=== PATIENT | female | born 1960 | race Caucasian/White ===

== ENCOUNTER 2018-07-02 11:50 | Emergency (ER) | payer OTHER ==
[~2018-07-02] VITALS: Ht 157.5 cm; Wt 70.3 kg
--- OUTSIDE RECORDS SUMMARY | ~2018-07-02 | XMS | Clinical Summary ---
Demographics + + + | Address | [address] | | | [place] [address] | + + + | Home Phone | | + + + | Preferred Language | Unknown | + + + | Marital Status | | + + + | Gnosticist Affiliation | NON | + + + | Race | White | + + + | Ethnic Group | Not or | + + + Author + + + | Organization | Unknown | + + + | Address | Unknown | + + + | Phone | Unavailable | + + + Support + + + + + | Name | Relationship | Address | Phone | + + + + + | LIAN MORA | ECON | THIS | | | | | [place] | | | | | [address] | | + + + + + Care Team Providers + +------+ + | Care Automotive Specialty Technician Name | Role | Phone | + +------+ + PP | Unavailable | + +------+ + Source Comments DEMARCUS is fully live on both [facility] Ambulatory and [facility] InPatient.[facility] [place] [facility] Allergies Not on File Current Medications Not on file Active Problems Not on file Social History + +-------+ +--------+------+ | Tobacco Use | Types | Packs/Day | Years | Date | | | | | Used | | + +-------+ +--------+------+ | Never Assessed | | | | | + +-------+ +--------+------+ + + + | Sex Assigned at | Date Recorded | | | | + + + | Not on file | | + + + Plan of Treatment + + + + + | Health Maintenance | Due Date | Last Done | Comments | + + + + + | Influenza (Flu) | | | | | vaccination (#1) | 8 | | | + + + + + Results Not on filefrom Last 3 Months"
--- OUTSIDE RECORDS SUMMARY | ~2018-07-02 | XMS | Clinical Summary ---
Demographics + + + | Address | [address] | | | [place] [address] | + + + | Home Phone | | + + + | Preferred Language | Unknown | + + + | Marital Status | | + + + | Mandaen Affiliation | 1038 | + + + | Race | Unknown | + + + | Ethnic Group | Unknown | + + + Author + + + | Author | [facility] | + + + | Organization | [facility] | + + + | Address | Unknown | + + + | Phone | Unavailable | + + + Support + + + + + | Name | Relationship | Address | Phone | + + + + + | David Mora | ECON | [address] | | | | | [place] | | | | | [address] | | + + + + + Care Team Providers + +------+ + | Care Human Resources Operations Specialist Name | Role | Phone | + +------+ + | Ilan Sanderson MD | PP | | + +------+ + Allergies + + + + + + | Active Allergy | Reactions | Severity | Noted | Comments | | | | | Date | | + + + + + + | Amoxicillin | Other (See Comments) | Medium | 09/19/19 | unknown | | | | | 15 | | + + + + + + | Penicillins | Other (See Comments) | Medium | 09/19/19 | unknown | | | | | 15 | | + + + + + + | Ketorolac | Other (See Comments) | Medium | 09/19/19 | unknown | | | | | 15 | | + + + + + + Current Medications + + +---------+---------+------+------+-------+ | Prescription | Sig. | Disp. | Refills | Star | End | Statu | | | | | | t | Date | s | | | | | | Date | | | + + +---------+---------+------+------+-------+ | atorvastatin | Take 40 mg by mouth | | | | | Activ | | (LIPITOR) 40 MG | nightly. | | | | | e | | tablet | | | | | | | + + +---------+---------+------+------+-------+ | metFORMIN | Take 1,000 mg by | | | | | Activ | | (GLUCOPHAGE) 500 MG | mouth 2 (two) times | | | | | e | | tablet | daily with meals. | | | | | | + + +---------+---------+------+------+-------+ | gabapentin | Take 300 mg by mouth | | | | | Activ | | (NEURONTIN) 300 MG | 3 (three) times | | | | | e | | capsule | daily. | | | | | | + + +---------+---------+------+------+-------+ | lisinopril | Take 5 mg by mouth | | | | | Activ | | (ZESTRIL) 5 MG | daily. | | | | | e | | tablet | | | | | | | + + +---------+---------+------+------+-------+ | insulin lispro, | Inject into the | | | | | Activ | | human, (HUMALOG) 100 | skin 3 (three) times | | | | | e | | UNIT/ML injection | daily before meals. | | | | | | + + +---------+---------+------+------+-------+ | insulin glargine | Inject 10 Units into | 10 mL | 12 | 09/12 | | Activ | | (LANTUS) 100 UNIT/ML | the skin nightly. | | | 0/20 | | e | | injection | | | | 15 | | | + + +---------+---------+------+------+-------+ Active Problems + + + | Problem | Noted Date | + + + | Drug overdose, multiple drugs | 09/18/2014 | + + + | Toxic metabolic encephalopathy | 09/18/2014 | + + + | Hypotension, unspecified | 09/18/2014 | + + + | Prolonged Q-T interval on ECG | 09/18/2014 | + + + | Type 2 diabetes mellitus without complication (HCC) | 09/18/2014 | + + + | Chronic pain syndrome | 09/18/2014 | + + + | HLD (hyperlipidemia) | 09/18/2014 | + + + | Depression | 09/18/2014 | + + + | Suicidal overdose | 09/18/2014 | + + + Immunizations + + + + | Name | Dates Previously Given | Next Due | + + + + | Pneumococcal | 09/19/2014 | | | Polysaccharide | | | | 23-valent | | | + + + + Social History + +-------+ +--------+------+ | Tobacco Use | Types | Packs/Day | Years | Date | | | | | Used | | + +-------+ +--------+------+ | Current Every Day | | 0.5 | | | | Smoker | | | | | + +-------+ +--------+------+ + + | Tobacco Cessation: Ready to Quit: No; Counseling Given: Yes | + + + + + | Sex Assigned at | Date Recorded | | | | + + + | Not on file | | + + + Last Filed Vital Signs + + + + | Vital Sign | Reading | Time Taken | + + + + | Blood Pressure | 130/63 | 09/21/2014 2:00 PM PDT | + + + + | Pulse | 89 | 09/21/2014 2:00 PM PDT | + + + + | Temperature | 37.3 C (99.2 F) | 09/21/2014 1:00 PM PDT | + + + + | Respiratory Rate | 20 | 09/21/2014 12:00 PM PDT | + + + + | Oxygen Saturation | 94% | 09/21/2014 2:00 PM PDT | + + + + | Inhaled Oxygen | - | - | | Concentration | | | + + + + | Weight | 72 kg (158 lb 11.7 | 09/21/2014 4:13 AM PDT | | | oz) | | + + + + | Height | 157.5 cm (5' 2") | 09/19/2014 9:45 AM PDT | + + + + | Body Mass Index | 29.03 | 09/21/2014 4:13 AM PDT | + + + + Plan of Treatment + + + + + | Health Maintenance | Due Date | Last Done | Comments | + + + + + | Vaccine: | | | | | Dtap/Tdap/Td (1 - | 0 | | | | Tdap) | | | | + + + + + | Cervical Cancer | | 10/11/2003 | | | Screening (Pap) | 9 | | | + + + + + | Vaccine: Zoster (1 | | | | | of 2) | 1 | | | + + + + + | Vaccine: Influenza | | | | | (#1) | 8 | | | + + + + + Results Not on filefrom Last 3 Months Insurance + +--------+ +------+-------+---------+ | Payer | Benefi | Subscriber | Type | Phone | Address | | | t Plan | ID | | | | | | / | | | | | | | Group | | | | | + +--------+ +------+-------+---------+ | [employer] | FC-NET | [id number] | | | | | | WORK | | | | | + +--------+ +------+-------+---------+ + +--------+ +--------+ + + | Guarantor Name | Accoun | Relation to | Date | Phone | Billing Address | | | t Type | Patient | of | | | | | | | | | | + +--------+ +--------+ + + | NURIA MORA | Person | Self [birth year] | Home: | [address] | | | al/Fam | | 1961 | [phone] | [place] | | | [place] | | | [phone] | [phone] | + +--------+ +--------+ + +
--- OUTSIDE RECORDS SUMMARY | ~2018-07-02 | XMS | Clinical Summary ---
Demographics + + + | Address | [address] | | | [place] [address] | + + + | Home Phone | | + + + | Preferred Language | Unknown | + + + | Marital Status | | + + + | Mormonism Affiliation | NON | + + + [...] [place] | | | | | [address] | | + + + + + Care Team Providers + +------+ + | Care Mining Plant Operator Name | Role | Phone | + +------+ + PP | Unavailable | + +------+ + Source Comments DEMARCUS is fully live on both [facility] Ambulatory and [facility] InPatient.[facility] Allergies Not on File Current Medications Not [...]
--- OUTSIDE RECORDS SUMMARY | ~2018-07-02 | XMS | Clinical Summary ---
Demographics + + + | Address | [address] | | | [place] [address] | + + + | Home Phone | | + + + | Preferred Language | Unknown | + + + | Marital Status | | + + + | Quaker Affiliation | 1038 | + + + | Race | Unknown | + + + | Ethnic Group | Unknown | + + + Author + + + | Author | [facility] | | | and [place] | + + + | Organization | [facility] | | | and [place] | + + + | Address | Unknown | + + + | Phone | Unavailable | + + + Support + + +---------+ + | Name | Relationship | Address | Phone | + + +---------+ + | LIAN MORA ECON | Unknown | | + + +---------+ + Care Team Providers + +------+ + | Care Lighting Fixture Installer Name | Role | Phone | + +------+ + | Narinder Roper MD | PP | | + +------+ + Allergies + + + + + + | Active Allergy | Reactions | Severity | Noted | Comments | | | | | Date | | + + + + + + | Amitriptyline | | | 10/22/19 | HOOKER OPERATOR | | | | | 14 | | + + + + + + | Amoxicillin | | | 07/ | | | | | | 14 | | + + + + + + | Aripiprazole | | | 10/22/19 | Palpitations, | | | | | 14 | headache | + + + + + + | Gabapentin | | | 10/22/19 | | | | | | 14 | | + + + + + + | Morphine | Itching | | 10/22/19 | | | | | | 14 | | + + + + + + | Penicillins | | | 10/22/19 | Stomach upset | | | | | 14 | | + + + + + + | Quetiapine Fumerate | | | 10/22/19 | | | | | | 14 | | + + + + + + | Risperidone | | | 10/22/19 | | | | | | 14 | | + + + + + + Current Medications + + +-------+---------+------+------+-------+ | Prescription | Sig. | Disp. | Refills | Star | End | Statu | | | | | | t | Date | s | | | | | | Date | | | + + +-------+---------+------+------+-------+ | metFORMIN | Take 1,000 mg by | | | | | Activ | | (GLUCOPHAGE) 500 mg | mouth 2 times daily | | | | | e | | tablet | (with breakfast & | | | | | | | | dinner). | | | | | | + + +-------+---------+------+------+-------+ | lisinopril | Take 5 mg by mouth | | | | | Activ | | (PRINIVIL, ZESTRIL) | Daily. | | | | | e | | 5 mg tablet | | | | | | | + + +-------+---------+------+------+-------+ | PARoxetine (PAXIL) | Take 20 mg by mouth | | | | | Activ | | 20 mg tablet | every morning. | | | | | e | + + +-------+---------+------+------+-------+ | traZODone | Take 300 mg by mouth | | | | | Activ | | (DESYREL) 100 mg | nightly. | | | | | e | | tablet | | | | | | | + + +-------+---------+------+------+-------+ | cyclobenzaprine | Take 10 mg by mouth | | | | | Activ | | (FLEXERIL) 10 mg | 3 times daily as | | | | | e | | tablet | needed. | | | | | | + + +-------+---------+------+------+-------+ | insulin glargine | Inject under the | | | | | Activ | | (LANTUS) 100 | skin nightly. | | | | | e | | units/mL injection | | | | | | | | cartridge | | | | | | | + + +-------+---------+------+------+-------+ | promethazine | Take 25 mg by mouth | | | | | Activ | | (PHENERGAN) 25 mg | every 6 hours as | | | | | e | | tablet | needed. | | | | | | + + +-------+---------+------+------+-------+ | clonazepam | Take 2 mg by mouth 3 | | | | | Activ | | (KLONOPIN) 2 MG | times daily as | | | | | e | | tablet | needed. | | | | | | + + +-------+---------+------+------+-------+ | atorvaSTATin | Take 40 mg by mouth | | | | | Activ | | (LIPITOR) 40 mg | nightly. | | | | | e | | tablet | | | | | | | + + +-------+---------+------+------+-------+ | | Take 1 tablet by | | | | | Activ | | HYDROcodone-acetamin | mouth every 6 hours | | | | | e | | ophen (NORCO) 5-325 | as needed. | | | | | | | mg per tablet | | | | | | | + + +-------+---------+------+------+-------+ | ondansetron | | | | 06/2 | | Activ | | (ZOFRAN) 8 MG tablet | | | | /20 | | e | | | | | | 14 | | | + + +-------+---------+------+------+-------+ | FREESTYLE LITE | | | | 07/3 | | Activ | | strip | | | | 1/20 | | e | | | | | | 14 | | | + + +-------+---------+------+------+-------+ | Monolet Lancets | | | | 07/3 | | Activ | | MISC | | | | 1/20 | | e | | | | | | 14 | | | + + +-------+---------+------+------+-------+ | | | | | 08/1 | | Activ | | oxyCODONE-acetaminop | | | | 6/20 | | e | | hen (PERCOCET) 5-325 | | | | 14 | | | | mg per tablet | | | | | | | + + +-------+---------+------+------+-------+ | risperiDONE | | | | 07/3 | | Activ | | (RISPERDAL) 0.5 mg | | | | 1/20 | | e | | tablet | | | | 14 | | | + + +-------+---------+------+------+-------+ | | | | | 08/1 | | Activ | | sulfamethoxazole-tri | | | | 6/20 | | e | | methoprim (BACTRIM | | | | 14 | | | | DS) 800-160 mg per | | | | | | | | tablet | | | | | | | + + +-------+---------+------+------+-------+ Active Problems + + + | Problem | Noted Date | + + + | 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 | 11/28/2013 | | intermittent claudication | | + + + + + | Overview: ICD-10 Record update | + + Family History + + +------+ + | Medical History | Relation | Name | Comments | + + +------+ + | Colon cancer | Father | | | + + +------+ + | Other (see comment) | Maternal | | ASHD | | | Grandfath | | | | | er | | | + + +------+ + | Cancer | Mother | | | + + +------+ + | Diabetes | Mother | | | + + +------+ + | Diabetes | Paternal | | | | | Grandfath | | | | | er | | | + + +------+ + | Other (see comment) | Paternal | | ASHD | | | Grandmoth | | | | | er | | | + + +------+ + + +------+ + + | Relation | Name | Status | Comments | + +------+ + + | Father | | | | + +------+ + + | Maternal Grandfather | | | | + +------+ + + | Mother | | Alive | | + +------+ + + | Paternal Grandfather | | | | + +------+ + + | Paternal Grandmother | | | | + +------+ + + Social History + +-------+ +--------+------+ | Tobacco Use | Types | Packs/Day | Years | Date | | | | | Used | | + +-------+ +--------+------+ | Current Every Day | | | | | | Smoker | | | | | + +-------+ +--------+------+ + + +---------+ + | Alcohol Use | Drinks/We | oz/Week | Comments | | | ek | | | + + +---------+ + | No | | | | + + +---------+ + + + + | Sex Assigned at | Date Recorded | | | | + + + | Not on file | | + + + Last Filed Vital Signs + + + + | Vital Sign | Reading | Time Taken | + + + + | Blood Pressure | 104/80 | 10/26/20131543 PDT | + + + + | Pulse | 123 | 10/26/20131543 PDT | + + + + | Temperature | 36 C (96.8 F) | 10/26/20131543 PDT | + + + + | Respiratory Rate | 18 | 10/26/20131543 PDT | + + + + | Oxygen Saturation | 97% | 10/26/20131543 PDT | + + + + | Inhaled Oxygen | - | - | | Concentration | | | + + + + | Weight | 70.1 kg (154 lb 8 | 10/26/20131543 PDT | | | oz) | | + + + + | Height | 154.9 cm (5' 1") | 10/26/20131543 PDT | + + + + | Body Mass Index | 29.19 | 10/26/20131543 PDT | + + + + Plan of Treatment + + + + + | Health Maintenance | Due Date | Last Done | Comments | + + + + + | Vaccine: | | | | | Dtap/Tdap/Td (1 - | 0 | | | | Tdap) | | | | + + + + + | Cervical Cancer | | | | | Screening (Pap) | 1 | | | + + + + + | Vaccine: Zoster (1 | | | | | of 2) | 1 | | | + + + + + | Vaccine: Influenza | | | | | (#1) | 8 | | | + + + + + Results Not on filefrom Last 3 Months Insurance + +--------+ +------+ +---------+ | Payer | Benefi | Subscriber | Type | Phone | Address | | | t Plan | ID | | | | | | / | | | | | | | Group | | | | | + +--------+ +------+ +---------+ | [employer] | PHP | [id number] | PPO | [id number] | | PLAN | PROV | | | [phone] | | | | [employer] | | | | | | | [place] | | | | | | | [place] | | | | | + +--------+ +------+ +---------+ + +--------+ +--------+ + + | Guarantor Name | Accoun | Relation to | Date | Phone | Billing Address | | | t Type | Patient | of | | | | | | | | | | + +--------+ +--------+ + + | NURIA MORA | Person | Self [birth year] | Home: | [address] | | | al/Fam | | 1961 | [phone] | [place] [address] | | | [place] | | | [phone] | | + +--------+ +--------+ + +
--- OUTSIDE RECORDS SUMMARY | ~2018-07-02 | XMS | Clinical Summary ---
Demographics + + + | Address | [address] | | | [place] [address] | + + + | Home Phone | | + + + | Preferred Language | Unknown | + + + | Marital Status | | + + + | Quaker Affiliation | 1038 | + + + | Race | Unknown | + + + | Ethnic Group | Unknown | + + + Author + + + | Author | [facility] | + + + | Organization | [facility] | + + + | Address | Unknown | + + + | Phone | Unavailable | + + + Support + + + + + | Name | Relationship | Address | Phone | + + + + + | David Mora | ECON | [address] | | | | | [place] | | | | | [address] | | + + + + + Care Team Providers + +------+ + | Care Lens Inserter Name | Role | Phone | + [...] +------+-------+---------+ | [employer] | FC-NET | [id number] | | | | | | WORK [...] | [place] | | | [phone] | [phone] | + +--------+ +--------+ + +
--- OUTSIDE RECORDS SUMMARY | ~2018-07-02 | XMS | Clinical Summary ---
Demographics + + + | Address | [address] | | | [place] [address] | + + + | Home Phone | | + + + | Preferred Language | Unknown | + + + | Marital Status | | + + + | Cheondoism Affiliation | 1038 | + + + | Race | Unknown | + + + | Ethnic Group | Unknown | + + + Author + + + | Author | [facility] | | | and [place] | + + + | Organization | [facility] | | | and [place] [...] Team Providers + +------+ + | Care Printer Slotter Helper Name | Role | Phone | + +------+ + | Narinder Roper MD | PP | | + +------+ + Allergies + + + + + + | Active Allergy | Reactions | Severity | Noted | Comments | | | | | Date | | + + + + + + | Amitriptyline | | | 10/22/19 | VISITOR INFORMATION ASSISTANT | | | | | 14 | [...] | + + + | Atherosclerosis of [place] arteries of the extremities with | 11/28/2013 [...] +---------+ | [employer] | PHP | [id number] | PPO | [phone] | | PLAN | PROV | [...] | 1961 | [phone] | [place] [address] | | | [place] | | | [address] | | + +--------+ +--------+ + +
[~2018-07-02 11:50] MED LIST: CIPROFLOXACIN500 MG PO; CLONAZEPAM0.5 MG PO; CLONAZEPAM1 MG PO; CLONAZEPAM2 MG; CYCLOBENZAPRINE10 MG; ERYTHROMYCIN500 MG PO; GABAPENTIN300 MG; KEFLEX500 MG PO; LANTUS100 UNITS/ SUB-Q; LIPITOR40 MG PO; LISINOPRIL10 MG PO; METFORMIN HCL500 MG PO; NORCO 5-325 TA1 EACH; NORCO 5-325 TA1 EACH PO; ONDANSETRON HCL8 MG PO; OXYCODONE HCL5 MG; OXYCODONE HCL5 MG PO; PAROXETINE HCL20 MG PO; PERCOCET 5-3251 EACH PO; PROMETHAZINE HC25 M1; TIZANIDINE HCL4 M1 PO; TRAZODONE HCL100 MG PO; ZOFRAN ODT8 MG PO
[2018-07-02] MEDS ORDERED: TYLENOL WITH C1 EACH PO (15:04)
--- NOTE | 2018-07-03 18:25 | EKG ---
[facility] [address] [place] [address] Signed Normal sinus rhythm with sinus arrhythmia Normal ECG No previous ECGs available Confirmed by LORNE ZUÑIGA MD ([id number]) on 07/03/2018 6:25:05 PM Electronically Signed By: LORNE ZUÑIGA MD 07/03/18 1825 PATIENT NAME: YANY MORA Electrocardiogram DATE OF : 60 PHYSICIAN: LORNE ZUÑIGA MD REPORT #: [id number] REPORT IS CONFIDENTIAL AND NOT TO BE RELEASED WITHOUT AUTHORIZATION
== END 2018-07-02 15:17 | disposition home or self-care (01) ==
LOC: ED 11:50
DX: R42 Dizziness and giddiness (principal); N39.0 Urinary tract infection, site not specified; F41.9 Anxiety disorder, unspecified; I10 Essential (primary) hypertension; E11.9 Type 2 diabetes mellitus without complications; Z87.891 Personal history of nicotine dependence; Z90.710 Acquired absence of both cervix and uterus; Z88.1 Allergy status to other antibiotic agents; Z88.0 Allergy status to penicillin; Z88.8 Allergy status to other drugs, medicaments and biological substances; Z88.6 Allergy status to analgesic agent; Z79.84 Long term (current) use of oral hypoglycemic drugs; Z79.899 Other long term (current) drug therapy
CPT/HCPCS: 71045; 80053; 81001; 84484; 85025; 93005; 93010; 96361; 96374; 96375; 99284-25; J2270; J2405; J2550; J7030

== ENCOUNTER 2019-06-16 10:15 | Emergency (ER) | payer OTHER ==
[~2019-06-16] VITALS: Ht 157.5 cm; Wt 70.3 kg
[~2019-06-16 10:15] MED LIST changes: +TYLENOL WITH C1 EACH PO
--- OUTSIDE RECORDS SUMMARY | 2019-06-16 10:18 | XMS ---
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 EJohn VISIT COUNT (12 MO.) 2 [facility] TOTAL 2 NOTE: Visits indicate total known visits. ED/UCC VISIT TRACKING (12 MO.) 06/16/2019 10:15 [facility] [place] TYPE: Emergency COMPLAINT: - HEADACHES, COLD SYMPTOMS 07/02/2018 11:51 [facility] [place] TYPE: Emergency COMPLAINT: - DIZZINESS/VOMITING DIAGNOSES: - Essential (primary) hypertension - Allergy status to oth drug/meds/biol subst status - [facility] (current) use of oral hypoglycemic drugs - Other intermediate (current) drug therapy - Allergy status to analgesic agent status - Dizziness and giddiness - 1 Type 2 diabetes mellitus without complications - Acquired absence of both cervix and uterus - Allergy status to penicillin - Personal history of nicotine dependence - Anxiety disorder, unspecified - Urinary tract infection, site not specified - Allergy status to other antibiotic agents status INPATIENT VISIT TRACKING (12 MO.) No inpatient visits to display in this time frame [email or web address]
[2019-06-16] MEDS ORDERED: CLONAZEPAM0.5 MG PO (10:33)
[2019-06-16] MEDS ORDERED: CYMBALTA60 MG PO (10:34)
[2019-06-16] MEDS ORDERED: ABILIFY10 MG PO (10:34)
[2019-06-16] MEDS ORDERED: GLIPIZIDE ER5 MG PO (10:35)
[2019-06-16] MEDS ORDERED: CEFUROXIME500 MG PO (13:47)
== END 2019-06-16 14:17 | disposition home or self-care (01) ==
LOC: ED 10:15
DX: N39.0 Urinary tract infection, site not specified (principal); F41.9 Anxiety disorder, unspecified; I10 Essential (primary) hypertension; E11.9 Type 2 diabetes mellitus without complications; Z87.891 Personal history of nicotine dependence; Z88.1 Allergy status to other antibiotic agents; Z88.0 Allergy status to penicillin; Z88.6 Allergy status to analgesic agent; Z79.899 Other long term (current) drug therapy; Z79.84 Long term (current) use of oral hypoglycemic drugs
CPT/HCPCS: 80053; 81001; 83690; 85025; 87502; 87880; 96361; 96365; 96375; 99284-25; J0696; J1200; J2405; J2765; J7030

== ENCOUNTER 2019-10-08 07:05 | Day surgery (SDC) | payer OTHER ==
[~2019-10-08] VITALS: Ht 152.4 cm; Wt 55.8 kg
[~2019-10-08 07:05] MED LIST changes: +ABILIFY10 MG PO; +CEFUROXIME500 MG PO; +CYMBALTA60 MG PO; +GLIPIZIDE ER5 MG PO
[2019-10-08] MEDS ORDERED: CYMBALTA60 MG PO (07:26)
--- NOTE | 2019-10-08 08:36 | NUR ---
10/08/19 0836 Jakob,Kimberly 0857 PT ARRIVED TO PACU ON 6L VIA MASK, RESP EVEN AND UNLABORED. 0832 PT WAKES AND DENIES PAIN AND NAUSEA. PT REORIENTED TO PACU. VSS. O2 MASK REMOVED.
--- NOTE | 2019-10-08 08:51 | NUR ---
PATIENT HAS AUDIBLE EXPIRATORY WHEEZE, REPORTS STOPPED TAKING LASIX 2 WEEKS AGO WHEN SHE HURT HER RIGHT KNEE. REPORTED FINDINGS TO SPARKLE MAC WHO NOTIFIED DR. ROSENBERG. PATIENT OPTED TO RESCHEDULE EGD, SECONDARY TO RISKS. DR. ROSENBERG INTO ROOM TO TALK WITH PATIENT.
--- NOTE | 2019-10-08 10:53 | OR ---
[facility] [address], [place] [address] Signed DATE OF OPERATION: 10/08/2019 SURGEON: Jennifer Rosenberg MD PREOPERATIVE DIAGNOSES: 1. Father with colon cancer, age 49. 2. Personal history of hyperplastic polyps. 3. Anemia. POSTOPERATIVE DIAGNOSES: 1. A 3 mm polyp at 12 cm (rectum). 2. Minimal internal hemorrhoids. 3. Minimal left-sided diverticulosis. PROCEDURE: Colonoscopy with cold biopsy. ESTIMATED BLOOD LOSS: None. INDICATIONS: Nuria is a 59-year-old female, who comes for followup colonoscopy. She has had colonoscopies in 2001, 2005 and 2013. Her father had developed colon cancer at age 49 and a year later from his colon cancer. Nuria in the meantime has no lower GI complaints. We were unable to sedate her in the past with Versed and fentanyl. Consequently, she requires monitored anesthesia care with propofol. In addition, she takes clonazepam, Cymbalta and Abilify at her baseline. Consequently, she always asks me for Xanax, so she can take before she comes in the hospital. We have made those arrangements once again on this occasion. She understands colonoscopy quite well. She understands there is risk including, but not limited to gas bloating, crampy abdominal pain, bleeding, perforation requiring surgery, and missed diagnosis. She has expressed understanding and would like to proceed. DESCRIPTION OF PROCEDURE: Nuria was taken into our endoscopy suite and placed in the left lateral decubitus position. She was given IV sedation with propofol per our nurse set up mold technician. A digital rectal exam was performed and this was unremarkable. The adult colonoscope was introduced and advanced under direct visualization of camera. Nuria is quite thin. We needed some abdominal compression to move the bowel loops around and add counter pressure in order to advance the scope into the cecum itself. Her prep was quite good Electronically Signed By: JENNIFER ROSENBERG MD 10/08/19 1053 PATIENT NAME: NURIA MORA OPERATIVE REPORT DATE OF : 60 REPORT #: [id number] PHYSICIAN: JENNIFER ROSENBERG MD PCP: ILAN QUIROGA MD REPORT IS CONFIDENTIAL AND NOT TO BE RELEASED WITHOUT AUTHORIZATION [facility] [address], [place] [address] Signed on this occasion. We could easily see the appendiceal orifice and the ileocecal valve. The scope was slowly withdrawn. We saw just a few tiny diverticula in her left colon. She had a very tiny polyp at the top of the rectum, which we removed with a cold biopsy forceps. Upon retroflexion of scope, she also has very tiny internal hemorrhoid tissue. After this, the gas was suctioned out and the colonoscope removed. Nuria tolerated the procedure quite well. RECOMMENDATIONS: I will see Nuria back in my office in 7 to 14 days to review her results. She will stay on the 5-year plan due to her family history. MD LAUREN Kruger/ELENAL /[id number] cc: MD Ilan Joseph MD Copies: BRENDA FINNEGAN MD, MALCOLM MD ~ Electronically Signed By: JENNIFER ROSENBERG MD 10/08/19 1053 PATIENT NAME: NURIA MORA OPERATIVE REPORT DATE OF : 60 REPORT #: [id number] PHYSICIAN: JENNIFER ROSENBERG MD PCP: ILAN QUIROGA MD REPORT IS CONFIDENTIAL AND NOT TO BE RELEASED WITHOUT AUTHORIZATION
--- NOTE | 2019-10-12 10:55 | PATH ---
[facility] [address] [place], [place] [address] Signed SPECIMEN(S): A RECTAL POLYP AT 12 CM SPECIMEN SOURCE: A. RECTAL POLYP AT 12 CM CLINICAL HISTORY: History of colon polyps; family history of colon CA. Postop: Diverticulosis; rectal polyp; internal hemorrhoids. MICROSCOPIC DESCRIPTION: Histologic sections of all submitted blocks are examined by light microscopy. These findings, together with the gross examination, support the pathologic diagnosis. FINAL PATHOLOGIC DIAGNOSIS: Rectum, polyp at 12 cm, polypectomy: - Hyperplastic polyp. - Negative for dysplasia or malignancy. NAL:cml:C2NR GROSS DESCRIPTION: The specimen, labeled "Nuria Mora, #1," and designated on the requisition "rectum polyp at 12 cm," is received in formalin and consists of one ndiaye soft tissue fragment that measures 0.4 cm in greatest dimension. The specimen is entirely submitted in cassette (A1). FB (under the direct supervision of a pathologist) The Gross Description was prepared using a voice recognition system. The report was reviewed for accuracy; however, sound-alike word errors, addition and/or deletions may occur. If there is any question about this report, please contact Client Services. PERFORMING LABORATORY: The technical component was performed by [facility], [address] [place] [id number] (Office Coordinator: Yadi Schmidt MD; CLIA# [id number]). [facility] [address] [address] (CLIA# [id number]). Diagnostician: Nyasia Negrete MD Pathologist Electronically Signed 10/12/2019 PATIENT NAME: NURIA MORA PATHOLOGY DATE OF : 60 REPORT #: [id number] PHYSICIAN: [facility] PCP: JACK QUIROGA MD REPORT IS CONFIDENTIAL AND NOT TO BE RELEASED WITHOUT AUTHORIZATION [address] [address] Signed Copies: ~ PATIENT NAME: NURIA MORA PATHOLOGY DATE OF : 60 REPORT #: [id number] PHYSICIAN: [facility] PCP: JACK QUIROGA MD REPORT IS CONFIDENTIAL AND NOT TO BE RELEASED WITHOUT AUTHORIZATION
== END 2019-10-08 09:10 | disposition home or self-care (01) ==
LOC: DS 07:05 → OPS 07:05 → DS 08:30 → OPS 09:10
PROVIDERS: Colon & Rectal Surgery
PROC: 0DBP8ZX Excision of Rectum, Via Natural or Artificial Opening Endoscopic, Diagnostic (ICD-10-PCS; principal; 2019-10-08 08:00)
DX: K62.1 Rectal polyp (principal); K64.8 Other hemorrhoids; K57.30 Diverticulosis of large intestine without perforation or abscess without bleeding; D64.9 Anemia, unspecified; I10 Essential (primary) hypertension; K21.9 Gastro-esophageal reflux disease without esophagitis; E78.5 Hyperlipidemia, unspecified; E11.9 Type 2 diabetes mellitus without complications; M06.9 Rheumatoid arthritis, unspecified; F41.9 Anxiety disorder, unspecified; F31.9 Bipolar disorder, unspecified; F17.210 Nicotine dependence, cigarettes, uncomplicated; Z80.0 Family history of malignant neoplasm of digestive organs; Z86.010 Personal history of colon polyps; Z79.899 Other long term (current) drug therapy; Z79.84 Long term (current) use of oral hypoglycemic drugs; Z98.890 Other specified postprocedural states; Z88.0 Allergy status to penicillin; Z88.5 Allergy status to narcotic agent; Z88.8 Allergy status to other drugs, medicaments and biological substances
CPT/HCPCS: J2001; J2405; J2704; J7121

== ENCOUNTER 2020-08-28 18:50 | Emergency (ER) | payer OTHER ==
[~2020-08-28] VITALS: Ht 152.4 cm; Wt 56.0 kg
--- OUTSIDE RECORDS SUMMARY | 2020-08-28 18:54 | XMS ---
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 Care History Medical/Surgical 06/17/2019 [facility] - Patient is currently established with [facility]. If patient is seen in the ED during business hours. Please contact CHWs at [facility]. Care Recommendation: If this patient has had 5 or more Emergency Department visits in the last 12 months.\T\nbsp; Patient will require education on the scope and purpose of the ED as an acute care provider not a Primary Care Provider and should not be utilized for chronic conditions.\T\nbsp; These are guidelines and the provider should exercise clinical judgment when providing care. E.D. VISIT COUNT (12 MO.) 1 [facility] TOTAL 1 NOTE: Visits indicate total known visits. ED/UCC VISIT TRACKING (12 MO.) 08/28/2020 18:[address] [facility] [place] TYPE: Emergency COMPLAINT: - FALL, LT SHOULDER INJURY INPATIENT VISIT TRACKING (12 MO.) No inpatient visits to display in this time frame [email or web address]
[2020-08-28] MEDS ORDERED: MAPAP500 MG PO (23:46)
== END 2020-08-29 00:06 | disposition home or self-care (01) ==
LOC: ED 18:50
DX: S06.0X0A Concussion without loss of consciousness, initial encounter (principal); R07.89 Other chest pain; M25.512 Pain in left shoulder; M54.6 Pain in thoracic spine; W01.10XA Fall on same level from slipping, tripping and stumbling with subsequent striking against unspecified object, initial encounter; I10 Essential (primary) hypertension; E11.9 Type 2 diabetes mellitus without complications; Z88.8 Allergy status to other drugs, medicaments and biological substances; Z88.1 Allergy status to other antibiotic agents; Z88.0 Allergy status to penicillin; Z88.6 Allergy status to analgesic agent; Z79.899 Other long term (current) drug therapy; Z79.84 Long term (current) use of oral hypoglycemic drugs; Z23 Encounter for immunization
CPT/HCPCS: 70450; 71260; 72125; 73030; 73060; 80048; 85025; 90471; 90715; 99284-25; Q9967

== ENCOUNTER 2020-09-20 18:52 | Emergency (ER) | payer OTHER ==
[~2020-09-20] VITALS: Ht 152.4 cm; Wt 55.8 kg
[~2020-09-20 18:52] MED LIST changes: +MAPAP500 MG PO
--- OUTSIDE RECORDS SUMMARY | 2020-09-20 18:56 | XMS ---
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 Care History Medical/Surgical 06/17/2019 [facility] - Patient is currently established with [facility]. If patient is seen in the ED during business hours. Please contact CHWs at [facility]. Care Recommendation: If this patient has had [...] providing care. E.D. VISIT COUNT (12 MO[address] 2 [facility] TOTAL 2 NOTE: Visits indicate total known visits. ED/UCC VISIT TRACKING (12 MO.) 09/20/2020 18:[address] 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
[2020-09-20] MEDS ORDERED: HYDROCODON-ACE1 EA10 PO (21:50)
== END 2020-09-20 22:06 | disposition home or self-care (01) ==
LOC: ED 18:52
DX: S49.92XA Unspecified injury of left shoulder and upper arm, initial encounter (principal); W10.9XXA Fall (on) (from) unspecified stairs and steps, initial encounter; I10 Essential (primary) hypertension; E11.9 Type 2 diabetes mellitus without complications; Z87.891 Personal history of nicotine dependence; Z88.1 Allergy status to other antibiotic agents; Z88.0 Allergy status to penicillin; Z88.6 Allergy status to analgesic agent; Z88.8 Allergy status to other drugs, medicaments and biological substances; Z79.899 Other long term (current) drug therapy; Z79.84 Long term (current) use of oral hypoglycemic drugs
CPT/HCPCS: 73200; 96372; 99283-25; J2270

== ENCOUNTER 2023-09-15 14:57 | Emergency (ER) | payer OTHER ==
[~2023-09-15] VITALS: Ht 152.4 cm; Wt 52.0 kg
[~2023-09-15 14:57] MED LIST changes: +HYDROCODON-ACE1 EA10 PO; +JARDIANCE10 MG; +METFORMIN HCL500 M1; +REGLAN10 MG PO; +TRULICITY0.75 MG/0.
[2023-09-15] MEDS ORDERED: BIOTIN5 MG PO (15:50)
[2023-09-15] MEDS ORDERED: CANDICIDAL CAP1 EACH PO (15:50)
[2023-09-15 15:59] LABS: BASOPHILS 1.3 % (0-2); EOSINOPHILS 1.7 % (0-6); HEMATOCRIT 37.2 % (35.0-50.0); HEMOGLOBIN 12.1 g/dL (12.0-18.0); LYMPHOCYTES 29.4 % (24-44); MCH 30.2 (27-36); MCHC 32.5 g/dl (30-36); MCV 93.2 fl (81-99); MONOCYTES 9.3 % (0-12); NEUTROPHILS 58.3 % (39-80); PLATELET COUNT 267 K/uL (140-440); RBC 3.99 M/ul (4.3-5.7); RDW 13.8 (10.5-15.0)
[2023-09-15] MEDS ORDERED: SODIUM CHLORIDE 0.9% 500 ML IV ONE (16:00)
[2023-09-15] MEDS ORDERED: ondansetron HCL 4 MG/2 ML VIAL IV ONE (16:00)
[2023-09-15 16:07] LABS: ALBUMIN 3.7 g/dL (3.4-5.0); ALBUMIN/GLOBULIN RATIO 0.95 (1.1-2.4); BILIRUBIN, TOTAL 0.3 ng/dL (0.2-1.0); BUN/CREATININE RATIO 12.14 (6.0-28.6); CALCIUM 8.7 mg/dL (8.5-10.1); CREATININE, SERUM 1.4 mg/dL (0.55-1.02); MAGNESIUM 1.8 mg/dL (1.8-2.4); PROTEIN, TOTAL 7.6 g/dL (6.4-8.2)
[2023-09-15] MEDS ORDERED: METOCLOPRAMIDE HCL 10 MG/2 ML SDV IV ONE (17:00)
[2023-09-15] MEDS ORDERED: SODIUM CHLORIDE 0.9% 500 ML IV PRN (17:00)
[2023-09-15 17:16] LABS: BILIRUBIN, URINE NEGATIVE (negative); BLOOD/HGB, URINE NEGATIVE (Negative); KETONE, URINE NEGATIVE (Negative); LEUK ESTERASE, URINE NEGATIVE (negative); NITRITE, URINE NEGATIVE (negative); PH, URINE 5.5 (5-7)
[2023-09-15 19:10] VITALS: BP 112/57
== END 2023-09-15 19:26 | disposition home or self-care (01) ==
LOC: ED 14:57
PROVIDERS: Emergency Medicine
DX: K52.1 Toxic gastroenteritis and colitis (principal); R10.9 Unspecified abdominal pain; R11.0 Nausea; T36.8X5A Adverse effect of other systemic antibiotics, initial encounter; I10 Essential (primary) hypertension; E11.9 Type 2 diabetes mellitus without complications; Z87.891 Personal history of nicotine dependence; Z88.0 Allergy status to penicillin; Z88.8 Allergy status to other drugs, medicaments and biological substances; Z79.84 Long term (current) use of oral hypoglycemic drugs; Z79.899 Other long term (current) drug therapy
CPT/HCPCS: 36415; 80053; 81003; 83735; 85025; J2405; J2765; J7040

== ENCOUNTER 2024-03-22 13:14 | Emergency (ER) | payer OTHER ==
[~2024-03-22] VITALS: Ht 152.4 cm; Wt 48.0 kg
[~2024-03-22 13:14] MED LIST changes: +BIOTIN5 MG PO; +CANDICIDAL CAP1 EACH PO; +PROMETHEGAN25 MG PR
[2024-03-22] MEDS ORDERED: HYDROXYZINE PAM50 MG PO (13:26)
[2024-03-22] MEDS ORDERED: SODIUM CHLORIDE 0.9% 500 ML IV ONE (13:30)
[2024-03-22] MEDS ORDERED: ondansetron HCL 4 MG/2 ML VIAL IV ONE ×3 (13:30→15:15)
[2024-03-22 13:44] LABS: HEMATOCRIT 41.3 % (35.0-50.0); HEMOGLOBIN 13.6 g/dL (12.0-18.0); MCH 30.8 (27-36); MCHC 33.1 g/dl (30-36); MCV 93.1 fl (81-99); PLATELET COUNT 310 K/uL (140-440); RBC 4.43 M/ul (4.3-5.7); RDW 13.9 (10.5-15.0)
[2024-03-22] MEDS ORDERED: HYDROmorphone HCL 1 MG/ML SYR IV ONE (13:45)
[2024-03-22] MEDS ORDERED: PANTOPRAZOLE SODIUM 40 MG/10 ML VIAL IV ONE (13:45)
[2024-03-22 13:56] LABS: ALCOHOL, MEDICAL <3 ng/dL (<3)
[2024-03-22 13:59] LABS: ALBUMIN 4.3 g/dL (3.4-5.0); ALBUMIN/GLOBULIN RATIO 1.05 (1.1-2.4); BILIRUBIN, TOTAL 0.7 ng/dL (0.2-1.0); BUN/CREATININE RATIO 15.78 (6.0-28.6); CALCIUM 9.5 mg/dL (8.5-10.1); CREATININE, SERUM 0.95 mg/dL (0.55-1.02); MAGNESIUM 1.6 mg/dL (1.8-2.4); PROTEIN, TOTAL 8.4 g/dL (6.4-8.2)
[2024-03-22 14:07] LABS: LYMPHOCYTES, MANUAL DIFF 17; MONOCYTES, MANUAL DIFF 4; NEUTROPHILS, MANUAL DIFF 79
[2024-03-22] MEDS ORDERED: droPERidol 5 MG/2 ML VIAL IV ONE (14:15)
[2024-03-22 14:33] LABS: BILIRUBIN, URINE NEGATIVE (negative); BLOOD/HGB, URINE NEGATIVE (Negative); KETONE, URINE >=80 (Negative); LEUK ESTERASE, URINE NEGATIVE (negative); NITRITE, URINE POSITIVE (negative)
[2024-03-22 14:40] LABS: BACTERIA, URINE 4+ /hpf (negative); CASTS, URINE NONE SEEN \\lpf; COLLECTION TYPE, URINE CLEAN CATCH; CRYSTALS, URINE NONE SEEN (0-1+); EPITHELIAL CELLS, URINE SQUAMOUS 3+ /lpf (0-1+); RED BLOOD CELLS, URINE 0-1 /hpf (0-5); REFLEX CULTURE, URINE No (No)
[2024-03-22 14:56] LABS: AMPHETAMINES, URINE NEGATIVE (NEGATIVE); BARBITURATES, URINE NEGATIVE (NEGATIVE); BENZODIAZEPINE, URINE NEGATIVE (NEGATIVE); BUPRENORPHINE, URINE NEGATIVE (NEGATIVE); CANNABINOID, URINE POSITIVE (NEGATIVE); COCAINE, URINE NEGATIVE (NEGATIVE); ECSTASY, URINE POSITIVE (NEGATIVE); FENTANYL, URINE NEGATIVE (NEGATIVE); METHADONE, URINE NEGATIVE (NEGATIVE); OPIATES, URINE NEGATIVE (NEGATIVE); OXYCODONE, URINE NEGATIVE (NEGATIVE); PHENCYCLIDINE, URINE NEGATIVE (NEGATIVE)
[2024-03-22] MEDS ORDERED: LORazepam 2 MG/ML VIAL IV ONE (15:15)
[2024-03-22] MEDS ORDERED: CEFTRIAXONE/SODIUM CHLORIDE 2 GM/100 ML PIGGYBACK IV ONE (15:15)
[2024-03-22] MEDS ORDERED: ONDANSETRON 4 MG TAB ODT SL ONE (17:15)
[2024-03-22] MEDS ORDERED: CEFDINIR300 MG PO (17:42)
[2024-03-22] MEDS ORDERED: ONDANSETRON ODT4 MG SL (17:42)
[2024-03-22 17:49] VITALS: BP 113/61
== END 2024-03-22 17:53 | disposition home or self-care (01) ==
LOC: ED 13:14
PROVIDERS: Emergency Medicine
DX: R11.2 Nausea with vomiting, unspecified (principal); N39.0 Urinary tract infection, site not specified; E11.9 Type 2 diabetes mellitus without complications; I10 Essential (primary) hypertension; Z88.6 Allergy status to analgesic agent; Z88.0 Allergy status to penicillin; Z88.8 Allergy status to other drugs, medicaments and biological substances; Z79.85 Long-term (current) use of injectable non-insulin antidiabetic drugs; Z79.84 Long term (current) use of oral hypoglycemic drugs; Z79.899 Other long term (current) drug therapy
CPT/HCPCS: 36415; 80053; 80307; 81001; 83690; 83735; 85025; 96361; 96374; 96375; 99284-25; A9270; G0480; J0696; J1171; J1790; J2060; J2405; J2470; J7040

== ENCOUNTER 2024-03-24 17:53 | Emergency (ER) | payer OTHER ==
[~2024-03-24] VITALS: Ht 152.4 cm; Wt 50.4 kg
[~2024-03-24 17:53] MED LIST changes: +CEFDINIR300 MG PO; +HYDROXYZINE PAM50 MG PO; +ONDANSETRON ODT4 MG SL
[2024-03-24] MEDS ORDERED: ondansetron HCL 4 MG/2 ML VIAL IV ONE (18:00)
[2024-03-24 18:12] LABS: BASOPHILS 0.8 % (0-2); EOSINOPHILS 0.4 % (0-6); HEMATOCRIT 39.7 % (35.0-50.0); HEMOGLOBIN 13.1 g/dL (12.0-18.0); MCH 31.1 (27-36); MCV 94.3 fl (81-99); MONOCYTES 7.6 % (0-12); NEUTROPHILS 58.2 % (39-80); PLATELET COUNT 368 K/uL (140-440); RBC 4.21 M/ul (4.3-5.7); RDW 13.4 (10.5-15.0)
[2024-03-24] MEDS ORDERED: diphenhydrAMINE HCL 50 MG/ML VIAL IV ONE (18:30)
[2024-03-24] MEDS ORDERED: LORazepam 2 MG/ML VIAL IV ONE ×2 (18:30→19:15)
[2024-03-24 18:31] LABS: ALBUMIN 4.4 g/dL (3.4-5.0); ALBUMIN/GLOBULIN RATIO 1.13 (1.1-2.4); ANION GAP 14.6 (7-21); BILIRUBIN, TOTAL 0.5 ng/dL (0.2-1.0); BUN/CREATININE RATIO 11.42 (6.0-28.6); CALCIUM 9.6 mg/dL (8.5-10.1); CREATININE, SERUM 1.05 mg/dL (0.55-1.02); MAGNESIUM 1.3 mg/dL (1.8-2.4); POTASSIUM 3.6 mmol/L (3.5-5.1); PROTEIN, TOTAL 8.3 g/dL (6.4-8.2)
[2024-03-24] MEDS ORDERED: MAGNESIUM SULFATE 2 GM/50 ML BAG IV ONE ×2 (19:00→21:15)
[2024-03-24] MEDS ORDERED: droPERidol 5 MG/2 ML VIAL IV ONE (19:45)
[2024-03-24] MEDS ORDERED: HEPARIN SOD,PORK IN 0.45% NACL 500 ML IV SCH (20:15)
[2024-03-24] MEDS ORDERED: HEParin SOD (PORCINE) 5,000 UNIT/ML VIAL IV ONE (20:15)
[2024-03-24] MEDS ORDERED: NITROGLYCERIN 50MG/D5W 250 ML IV SCH (20:30)
[2024-03-24] MEDS ORDERED: MORPHINE SULFATE 4 MG/ML VIAL IV ONE (20:30)
[2024-03-24] MEDS ORDERED: ASPIRIN 81 MG CHEW PO ONE (20:30)
[2024-03-24 20:33] LABS: PARTIAL THROMBOPLASTIN TIME 26.3 Sec (22.9-41.3)
[2024-03-24 20:34] LABS: INR 1.03 (0.80-1.30); PROTIME 12.8 Sec (11.2-14.2)
[2024-03-24] MEDS ORDERED: METOPROLOL TARTRATE 5 MG/5 ML VIAL IV ONE (20:45)
[2024-03-24] MEDS ORDERED: NITROGLYCERIN 0.4 MG SUBL SL ONE (20:45)
[2024-03-24 21:35] LABS: INFLUENZA B NAA NEGATIVE (NEGATIVE); RESPIRATORY SYNCYTIAL VIR NAA NEGATIVE (NEGATIVE)
[2024-03-24] MEDS ORDERED: CEFDINIR 300 MG CAP PO ONE (21:45)
[2024-03-24 22:23] VITALS: BP 107/64
--- NOTE | 2024-03-24 23:03 | EKG ---
[facility] [address] [facility] [place] [address] Signed Normal sinus rhythm with sinus arrhythmia Septal infarct , age undetermined Abnormal ECG When compared with ECG of 21-APR-2023 18:06, Normal sinus rhythm has replaced Sinus bradycardia Confirmed by Thu Gonzalez MD () on 03/24/2024 11:03:00 PM Electronically Signed By: THU GONZALEZ MD 03/24/24 230 PATIENT NAME: YANY TOM Electrocardiogram DATE OF : 60 PHYSICIAN: THU GONZALEZ MD REPORT #: [id number] REPORT IS CONFIDENTIAL AND NOT TO BE RELEASED WITHOUT AUTHORIZATION
--- NOTE | 2024-03-24 23:07 | EKG ---
[facility] [address] [facility] [place] [address] Signed Normal sinus rhythm Septal infarct (cited on or before 24-MAR-2024) Abnormal ECG When compared with ECG of 24-MAR-2024 18:01, QT has lengthened Confirmed by Thu Gonzalez MD () on 03/24/2024 11:07:07 PM Electronically Signed By: THU GONZALEZ MD 03/24/24 2307 PATIENT NAME: YANY TOM Electrocardiogram DATE OF : 60 PHYSICIAN: THU GONZALEZ MD REPORT #: [id number] REPORT IS CONFIDENTIAL AND NOT TO BE RELEASED WITHOUT AUTHORIZATION
== END 2024-03-24 22:23 | disposition short-term general hospital (02) ==
LOC: ED 17:53
PROVIDERS: Emergency Medicine; Family Medicine
DX: I21.4 Non-ST elevation (NSTEMI) myocardial infarction (principal); R11.10 Vomiting, unspecified; I10 Essential (primary) hypertension; E11.9 Type 2 diabetes mellitus without complications; F17.290 Nicotine dependence, other tobacco product, uncomplicated; Z88.6 Allergy status to analgesic agent; Z88.0 Allergy status to penicillin; Z88.8 Allergy status to other drugs, medicaments and biological substances; Z88.5 Allergy status to narcotic agent; Z79.84 Long term (current) use of oral hypoglycemic drugs; Z79.85 Long-term (current) use of injectable non-insulin antidiabetic drugs; Z79.899 Other long term (current) drug therapy
CPT/HCPCS: 36415; 71045; 80053; 83735; 83880; 84484; 85025; 85379; 85610; 85730; 87502; 93005; 93010; J1200; J1644; J1790; J2060; J2270; J2405; J3475; U0002

== ENCOUNTER 2024-04-12 17:26 | Emergency (ER) | payer OTHER ==
[~2024-04-12] VITALS: Ht 152.4 cm; Wt 49.9 kg
[2024-04-12] MEDS ORDERED: PROCHLORPERAZINE EDISYLATE 10 MG/2 ML VIAL IV ONE (17:45)
[2024-04-12] MEDS ORDERED: ASPIRIN 81 MG CHEW PO ONE (17:45)
[2024-04-12] MEDS ORDERED: MAGNESIUM400 M1 PO (17:56)
[2024-04-12] MEDS ORDERED: MIDODRINE HCL2.5 MG PO (17:56)
[2024-04-12] MEDS ORDERED: NITROGLYCERIN0.4 MG SL (17:57)
[2024-04-12] MEDS ORDERED: PANTOPRAZOLE SO40 MG PO (17:57)
[2024-04-12] MEDS ORDERED: ASPIRIN81 MG PO (17:57)
[2024-04-12] MEDS ORDERED: ATORVASTATIN CA80 MG PO (17:57)
[2024-04-12] MEDS ORDERED: CLOPIDOGREL75 MG PO (17:57)
[2024-04-12 17:58] LABS: BASOPHILS 1.2 % (0-2); EOSINOPHILS 1.2 % (0-6); HEMATOCRIT 33.8 % (35.0-50.0); HEMOGLOBIN 11.2 g/dL (12.0-18.0); LYMPHOCYTES 18.8 % (24-44); MCH 30.6 (27-36); MCHC 33.1 g/dl (30-36); MCV 92.5 fl (81-99); MONOCYTES 6.3 % (0-12); NEUTROPHILS 72.5 % (39-80); PLATELET COUNT 396 K/uL (140-440); RBC 3.66 M/ul (4.3-5.7)
[2024-04-12] MEDS ORDERED: TRAZODONE HCL150 MG PO (17:58)
[2024-04-12] MEDS ORDERED: diphenhydrAMINE HCL 50 MG/ML VIAL IV ONE (18:00)
[2024-04-12 18:20] LABS: ALBUMIN 3.8 g/dL (3.4-5.0); ALBUMIN/GLOBULIN RATIO 0.95 (1.1-2.4); ANION GAP 19.8 (7-21); BILIRUBIN, TOTAL 0.4 ng/dL (0.2-1.0); BUN/CREATININE RATIO 21.97 (6.0-28.6); CALCIUM 9.3 mg/dL (8.5-10.1); CREATININE, SERUM 0.91 mg/dL (0.55-1.02); MAGNESIUM 1.6 mg/dL (1.8-2.4); POTASSIUM 4.8 mmol/L (3.5-5.1); PROTEIN, TOTAL 7.8 g/dL (6.4-8.2)
[2024-04-12] MEDS ORDERED: ondansetron HCL 4 MG/2 ML VIAL IV PRN (19:00)
[2024-04-12] MEDS ORDERED: HYDROmorphone HCL 1 MG/ML SYR IV ONE (19:00)
[2024-04-12] MEDS ORDERED: ACETAMINOPHEN 325 MG TAB PO ONE (20:15)
[2024-04-12 20:21] VITALS: BP 133/65
--- NOTE | 2024-04-14 20:31 | EKG ---
[facility] [address] [facility] [place], [place] [address] Signed Sinus tachycardia Right axis deviation Septal infarct , age undetermined T wave abnormality, consider anterior ischemia Abnormal ECG No previous ECGs available Confirmed by Tao Cummings DO ([id number]) on 04/14/2024 8:31:50 PM Electronically Signed By: TAO CUMMINGS DO 04/14/242030 PATIENT NAME: YANY TOM HARDEEP Electrocardiogram DATE OF : 60 PHYSICIAN: TAO CUMMINGS DO REPORT #: [id number] REPORT IS CONFIDENTIAL AND NOT TO BE RELEASED WITHOUT AUTHORIZATION
== END 2024-04-12 20:22 | disposition home or self-care (01) ==
LOC: ED 17:26
PROVIDERS: Emergency Medicine
DX: R07.89 Other chest pain (principal); R11.2 Nausea with vomiting, unspecified; I25.2 Old myocardial infarction; I10 Essential (primary) hypertension; E11.9 Type 2 diabetes mellitus without complications; E78.00 Pure hypercholesterolemia, unspecified; Z87.891 Personal history of nicotine dependence; Z95.5 Presence of coronary angioplasty implant and graft; Z88.6 Allergy status to analgesic agent; Z88.0 Allergy status to penicillin; Z88.8 Allergy status to other drugs, medicaments and biological substances; Z79.84 Long term (current) use of oral hypoglycemic drugs; Z79.85 Long-term (current) use of injectable non-insulin antidiabetic drugs; Z79.82 Long term (current) use of aspirin; Z79.01 Long term (current) use of anticoagulants; Z79.899 Other long term (current) drug therapy
CPT/HCPCS: 36415; 71045; 80053; 83735; 83880; 84484; 85025; 93005; 93010; 96374; 96375; 99285-25; A9270; J0780; J1171; J1200; J2405

== ENCOUNTER 2025-01-13 09:06 | Emergency (ER) | payer OTHER ==
[~2025-01-13] VITALS: Ht 152.4 cm; Wt 70.0 kg
[~2025-01-13 09:06] MED LIST changes: +ASPIRIN81 MG PO; +ATORVASTATIN CA80 MG PO; +CLOPIDOGREL75 MG PO; +MAGNESIUM400 M1 PO; +MIDODRINE HCL2.5 MG PO; +NITROGLYCERIN0.4 MG SL; +PANTOPRAZOLE SO40 MG PO; +TRAZODONE HCL150 MG PO
[2025-01-13] MEDS ORDERED: OXYCODONE/APAP 5/325 TAB PO ONE (09:30)
[2025-01-13] MEDS ORDERED: CYCLOBENZAPRINE HCL 10 MG TAB PO ONE (09:30)
[2025-01-13] MEDS ORDERED: ONDANSETRON 4 MG TAB ODT SL ONE (09:30)
[2025-01-13] MEDS ORDERED: IBUPROFEN 600 MG TAB PO ONE (09:30)
[2025-01-13 10:42] LABS: BLOOD/HGB, URINE NEGATIVE (Negative); KETONE, URINE NEGATIVE (Negative); LEUK ESTERASE, URINE TRACE (negative); NITRITE, URINE POSITIVE (negative)
[2025-01-13] MEDS ORDERED: SODIUM CHLORIDE 0.9% 1,000 ML IV PRN (10:45)
[2025-01-13 10:52] LABS: BACTERIA, URINE 1+ /hpf (negative); CASTS, URINE NONE SEEN \\lpf; CRYSTALS, URINE NONE SEEN (0-1+); EPITHELIAL CELLS, URINE 0 /lpf (0-1+); REFLEX CULTURE, URINE Yes (No)
[2025-01-13 11:21] LABS: BASOPHILS 0.4 % (0.1-1.2); EOSINOPHILS 1.8 % (0.7-5.8); LYMPHOCYTES 27.1 % (19.3-51.7); MCH 29.6 PG (25.6-32.2); MCHC 32.1 g/dL (32.2-35.5); MCV 92.2 fL (79.4-94.8); MONOCYTES 5.1 % (4.7-12.5); NEUTROPHILS 65.0 % (34.0-71.1); RBC 3.58 M/uL (3.93-5.22)
[2025-01-13 11:43] LABS: ALT (SGPT) 19.0 U/L (14-59); AST (SGOT) 17.0 U/L (15-37); GLOMERULAR FILTRATION RATE,EST 79.0 mL/min (>60); PROTEIN, TOTAL 6.8 g/dL (6.4-8.2); UREA NITROGEN 22.0 mg/dL (7-18)
[2025-01-13] MEDS ORDERED: CYCLOBENZAPRINE10 MG PO (12:23)
[2025-01-13] MEDS ORDERED: LEVOFLOXACIN750 MG PO (12:23)
[2025-01-13 12:52] VITALS: BP 95/59
== END 2025-01-13 12:53 | disposition home or self-care (01) ==
LOC: ED 09:06
PROVIDERS: Emergency Medicine
DX: M54.31 Sciatica, right side (principal); M54.32 Sciatica, left side; N39.0 Urinary tract infection, site not specified; E11.65 Type 2 diabetes mellitus with hyperglycemia; I10 Essential (primary) hypertension; E78.00 Pure hypercholesterolemia, unspecified; I25.2 Old myocardial infarction; Z95.5 Presence of coronary angioplasty implant and graft; Z87.891 Personal history of nicotine dependence; Z88.6 Allergy status to analgesic agent; Z88.0 Allergy status to penicillin; Z88.8 Allergy status to other drugs, medicaments and biological substances; Z79.84 Long term (current) use of oral hypoglycemic drugs; Z79.82 Long term (current) use of aspirin; Z79.02 Long term (current) use of antithrombotics/antiplatelets; Z79.899 Other long term (current) drug therapy; D64.9 Anemia, unspecified
CPT/HCPCS: 36415; 80053; 81001; 82800; 83036; 85025; 87077; 87088; 87186; 96374; 99283-25; A9270; J2405; J7030